=== PATIENT | female | born 1950 ===

== ENCOUNTER → 2023-11-24 09:31 | Outpatient (REF) | payer MEDICARE, OTHER, SELFPAY ==
[2023-11-24 10:27] LABS: Hematocrit 39.3 % (37.0-47.0); Hemoglobin 13.1 g/dL (12.0-16.0); Mean Corp Hgb Conc. 33.3 g/dL (33.0-37.0); Mean Corpuscular Hgb 29.8 pg (27.0-31.0); Mean Corpuscular Volume 89.3 fL (81.0-99.0); Mean Platelet Volume 9.6 fL (7.4-10.4); Platelet Count 244 10^3/uL (130-400); Red Cell Dist. Width 12.7 % (11.5-14.5)
[2023-11-24 10:56] LABS: Blood Urea Nitrogen 21 mg/dl (7-17); Calcium 9.7 mg/dl (8.4-10.2); Carbon Dioxide 26 mmol/L (22-30); Chloride 103 mmol/L (98-107); Glucose 100 mg/dl (70-99); Potassium 4.1 mmol/L (3.5-5.1); Sodium 137 mmol/L (135-145); eGFR > 60.00
== END ==
LOC: SDSPAT 09:31
PROVIDERS: ATTENDING PHYSICIAN Surgery; FAMILY PHYSICIAN Family Medicine
DX: Z01.818 Encounter for other preprocedural examination (principal)
CPT/HCPCS: 36415; 80048; 85027; 93005

== ENCOUNTER 2023-12-08 06:13 | Day surgery (SDC) | payer MEDICARE, OTHER, SELFPAY ==
[2023-11-24 09:55] VITALS: BMI 32.7
--- NOTE | 2023-11-25 12:36 | PTCARENOTE ---
Abn ECG, Dr. Bailey notified, no requests received.
[2023-12-08] VITALS (10 sets, daily range): BP systolic 124–154; BP diastolic 62–72; BMI 32.7
[2023-12-08] MEDS: TYLENOL 1000 MG PO (06:35)
[2023-12-08] MEDS: NORMOSOL-R 1000 IV (06:38)
--- NOTE | 2023-12-08 06:57 | HP.FOC2 ---
Focused History & Physical
Chief Complaint
HPI:
Chief Complaint: Right inguinal swelling
HPI / Indication for Planned Procedure: Patient is a 73-year-old female recently seen in outpatient surgical evaluation after CT imaging identified a right femoral hernia. She has had a history of a visible bulge and swelling as well as sensation
of gas moving within the right inguinal/femoral hernia space. Occasional discomfort associated with it. Physical examination confirmed the presence of a reducible right femoral/inguinal hernia
Relevant Past Medical History: Other (Osteoporosis, hypercholesterolemia, GERD)
Relevant Social History: Negative
Relevant Family History: Negative
Relevant Past Surgical History: Positive for (Partial hysterectomy)
Review of Systems
Review of Pertinent Systems: All Systems Negative
Medication
See Medication form for detailed medications: Yes
Medication List (including Herbals & OTC):
Lactobacillus 25 billion cell-Bifido 25 billion [id number] capsule 1 cap PO DAILY 12/01/23
alendronate 70 mg tablet 70 mg PO QWEEK 12/01/23
calcium carbonate (Calcium 600) 600 mg PO BID 12/01/23
cholecalciferol (vitamin D3) 50 mcg (2,000 unit) capsule (Vitamin D3) 50 mcg PO NOON 12/01/23
coenzyme Q10 100 mg capsule (CoQ-10) 200 mg PO DAILY 12/01/23
omeprazole 20 mg tablet,delayed release 20 mg PO DAILY 12/01/23
pravastatin 10 mg tablet 10 mg PO HS 12/01/23
Medications Reviewed: Yes
Allergies and Reactions
Patient has Allergies: Yes
Noted Allergies and Reactions:
Allergy/AdvReac Type Severity Reaction Status Date / Time
latex Allergy Rash Verified 12/08/23 06:23
sulfamethoxazole Allergy N/V/D Verified 12/08/23 06:23
[From Bactrim]
trimethoprim [From Bactrim] Allergy N/V/D Verified 12/08/23 06:23
Pertinent Physical Exam
All Other Systems: Negative
Head/Neck: Normal
Lungs: Normal
Heart: Normal
Abdomen: Other (Reducible right inguinal/femoral hernia)
Extremities: Normal
Neurological: Normal
Diagnosis / Assessment
Patient is a 73-year-old female presenting for scheduled operative correction symptomatic right femoral hernia
Plan / Procedure
Robotic assisted laparoscopic repair of right femoral hernia with mesh
Anesthesia/Sedation to be done by Anesthesia Provider: Yes
--- NOTE | 2023-12-08 06:58 | W.SUR.PREOP ---
Pre-Operative Surgical Note
-
I have examined this patient prior to the performance of the scheduled procedure.
The patient's condition is unchanged from the time of the current History and
Physical and the patient is able to undergo the scheduled procedure.
--- NOTE | 2023-12-08 09:23 | W.IMMPOSTOP ---
Addendum entered and electronically signed by Anthony Tam MD 12/08/23 09:36:
#[id number]
Original Note:
Surgical Immed Post Op Note
-
Primary Surgeon: Yonatan
Assisting Surgeon: Kathy Lovell - CHARU
Pre-op Diagnosis: Right femoral/inguinal hernia
Post-op Diagnosis: Right inguinal hernia
Procedure Performed: Robotic assisted laparoscopic repair right inguinal hernia with mesh; 3D max large mid weight
Anesthesia Type: GETA +0.5% Marcaine
Specimen / Cultures: None
Estimated Blood Loss: 10 mL
Complications: None immediate
Operative Findings: Right indirect inguinal hernia with sizable hernia sac, herniated preperitoneal fat. Indirect and femoral spaces normal. Entire hernia sac and contents reduced and excessive hernia sac excised. 3D max large mid weight mesh
repair.
The assistance of Kathy Lovell PA-C was required due to the complexity of the procedure. During the procedure Kathy Lovell PA-C assisted with port placement, robotic instrumentation and suture/surgical material exchanges, and closure of the surgical
incision sites. I was present for the entirety of the operative procedure.
--- NOTE | 2023-12-08 10:12 | PTCARENOTE ---
0926 Received patient from OR C/O need to void, given bedpan and patient unable to void. Patient feels very uncomfortable, bladder scan performed indicated 562 ML. Attempted to straight cath X2 with staff assist, unsuccessful as patient anatomy made
visualization of urethra difficult. While attempting to straight cath patient was incont of small amount of urine, while changing pad patient became incont of moderate amount of urine. Patient reports feeling better requesting bathroom. Report
given to SDS RN and patient now C/O increase feeling to urinate again. SDS RN will take patient to bathroom. Stable for transfer to [facility].
[2023-12-08] MEDS: ROXICODONE 5 MG PO (10:38)
== END 2023-12-08 11:00 | disposition home or self-care (01) ==
LOC: SDS 06:13
PROVIDERS: ATTENDING PHYSICIAN Surgery
DX: K40.90 Unilateral inguinal hernia, without obstruction or gangrene, not specified as recurrent (principal)
CPT/HCPCS: 49650; C1781

== ENCOUNTER 2025-04-14 05:53 | Day surgery (SDC) | payer MEDICARE, OTHER, SELFPAY ==
--- NOTE | 2025-03-28 10:03 | CM ---
Demographics: confirmed
Living situation: confirmed
Support Person Post Operatively: spouse
History of
VN: no
SNF: no
Outpatient : [facility]
Has patient purchased required equipment: yes
PCP: active
Pharmacy: [facility]
Post Operative Discharge Plan: [facility], and then transition to Outpatient [facility]
--- NOTE | 2025-03-31 10:37 | VNURNOTE ---
Patient is scheduled for an elective R TKA on 04/14 - she is a same day patient with Dr Coles. Spoke with patient prior to surgery. Introduced role of [facility] Liaison. Patient reports that she lives with her spouse.
She will be getting 2 rolling walkers next week.
PCP is Dr Jeancarlos Dee
Discussed [facility] joint protocol and post surgical plans.
Reviewed that she will have VN services initially and will then start outpatient PT.
Patient selects [facility] for her home care needs and will go to [facility] outpatient [facility]. Scheduled for 04/18 .
Patient is in agreement with plan and states that her spouse and daugther will be home with her. Advised to bring RW with her day of surgery. [facility] contact number provided. Referral placed in [facility].
Plan: [facility] per [facility] joint protocol 04/14 then outpt PT on 04/18.
[2025-04-01 11:42] LABS: Hematocrit 39.5 % (37.0-47.0); Hemoglobin 12.9 g/dL (12.0-16.0); Mean Corp Hgb Conc. 32.7 g/dL (33.0-37.0); Mean Corpuscular Volume 88.0 fL (81.0-99.0); Platelet Count 232 10^3/uL (130-400); Red Cell Dist. Width 13.1 % (11.5-14.5)
[2025-04-01 12:06] LABS: ALT (SGPT) 18 U/L (0-35); AST (SGOT) 22 U/L (14-36); Albumin 4.3 g/dl (3.5-5.0); Alkaline Phosphatase 69 U/L (38-126); Blood Urea Nitrogen 18 mg/dl (7-17); Calcium 9.5 mg/dl (8.4-10.2); Carbon Dioxide 28 mmol/L (22-30); Chloride 105 mmol/L (98-107); Glucose 112 mg/dl (70-99); Potassium 4.2 mmol/L (3.5-5.1); Sodium 136 mmol/L (135-145); Total Protein 7.2 g/dl (6.3-8.2); eGFR > 60.00
[2025-04-01 12:29] LABS: Glycohemoglobin (HgbA1c) 5.7 % (4.0-5.9)
[2025-04-01 14:09] VITALS: BMI 34.6
[2025-04-01 18:36] VITALS: BMI 34.6
[2025-04-14] VITALS (15 sets, daily range): BP systolic 103–139; BP diastolic 44–70
[2025-04-14] MEDS: TYLENOL 650 MG PO ×2 (06:23→13:26)
[2025-04-14] MEDS: MOBIC 15 MG PO (06:23)
[2025-04-14] MEDS: NORMOSOL-R/PLASMALYTE-A 1000 IV (06:31)
[2025-04-14] MEDS: DILAUDID 0.25 MG IV (10:02)
[2025-04-14] MEDS: COMPAZINE 10 MG IV (11:05)
[2025-04-14] MEDS: ANCEF 5 IV (11:32)
[2025-04-14] MEDS: ROXICODONE 5 MG PO (12:02)
[2025-04-14] MEDS: TORADOL 15 MG IV (13:26)
--- NOTE | 2025-04-14 18:59 | OR.RPT ---
Operative Report
Operative Report
Orthopaedic Surgery Operative Note
DATE OF OPERATION: 04-14-2025
PREOPERATIVE DIAGNOSES: Osteoarthritis, right knee.
POSTOPERATIVE DIAGNOSES: Osteoarthritis, right knee.
OPERATION PERFORMED:
1) Right total knee arthroplasty (CPT 37102)
2) Intraosseous administration of analgesic (CPT 90047)
SURGEON: Aldo Coles MD
ASSISTANTS: Neto Platt PA-C who helped with patient and limb positioning and retraction
ANESTHESIA: Spinal by anesthesia plus intraoperative infusion of morphine into the tibial metaphysis by Dr. Coles
COMPLICATIONS: None.
ESTIMATED BLOOD LOSS: 20mL
DRAINS: None
TOURNIQUET TIME: 48 minutes.
IMPLANTS:
- Alfonso Persona CR Femur, size 9
- Alfonso Persona tibia base plate, size E
- Alfonso Persona ultracongruent articular surface, 10 mm
- DJO [place] bone cement
INDICATIONS: The patient presented to my office with debilitating right knee pain due to osteoarthritis. We reviewed the natural history of this problem, as well as the risks, benefits, and alternatives of various treatment options. The patient
exhausted all nonoperative treatment options and wished to proceed with knee replacement surgery. The patient understood the risks which included, but were not limited to, bleeding, infection, failure to relieve pain, more pain than preop, damage to
blood vessels and nerves, need for reoperation, mechanical failure of the implants, wound healing problems, stiffness, instability, blood clot, pulmonary embolism, myocardial infarction, pneumonia, arrhythmia, CVA, and . The patient accepted
these risks and wished to proceed. All questions were answered, and informed consent was obtained.
PROCEDURE IN DETAIL: The patient was identified in the preoperative holding area. The right knee was identified as the operative site. The patient was taken in the operating room and placed in a supine position on the operating table. Spinal
anesthesia was performed. IV antibiotics and tranexamic acid were administered. An SCD was placed on the left lower extremity. A well-padded tourniquet was placed on the proximal thigh. All bony prominences were well padded. The right lower
extremity was prepped and draped in the usual sterile fashion.
We performed a surgical time-out. An interarticular block was performed with local anesthetic with epinephrine. The limb was exsanguinated with an Esmarch bandage, then the tourniquet was inflated to 250 mmHg. I performed interosseous administration
of morphine-saline solution via a Jamshidi style intraosseous needle into the proximal medial tibial metaphysis as described by Arnol Santiago MD. This was performed to aid in pain control. A midline skin incision was made followed by a medial
parapatellar arthrotomy. A subperiosteal peel was performed on the medial tibia. I excised part of the infrapatellar fat pad to improve our visualization as well as tissue over anterior femur. The patella was everted and the knee was flexed. I
excised the remnants of the anterior and posterior cruciate ligaments as well as tibial and femoral osteophytes with rongeurs.
The knee was flexed, and the extramedullary tibial cutting guide was aligned. [facility] was aligned at neutral, rotation was centered on the tibial tubercle, and coronal alignment was aligned with the mechanical axis of the tibia and center of the ankle
joint. The cut height was 10mm off the lateral tibia joint surface. The guide was secured into place. The MCL and LCL were protected. The tibia surface was cut. The cut surface was inspected after removal to ensure appropriate height and slope based
on the preoperative plan. The cut was checked with a drop wolf. It was centered nicely at the ankle.
A drill was used to open the femoral canal. The intramedullary distal femoral cutting guide was inserted into the femur. This was set at 5 degrees +0. This was secured into place with three pins. The cut level was checked with an yunior wing. The
distal femur was cut through the cutting guide. The IM guide was reinserted to double check that the level of resection was flush and in appropriate alignment.
Cheng�s line and the transepicondylar axis were marked on the femur. The femoral sizing guide was applied to the anterior femur. Pins were inserted, and the 4-in-1 cutting guide was applied and secured into place. The rotation was compared to
Tehama�s line, the transepicondylar axis, and the neutral tibia cut and was found to be appropriate. The width was checked and found to be appropriate and lateralized on the femur. The anterior, posterior, and chamfur cuts were made. A lamina
system engineer was used to open the flexion gap, and posterior osteophytes were removed with a curved osteotome. The remnant medial and lateral meniscus were also removed. I prophylactically cauterized the lateral geniculate arteries. A 10mm spacer block
was applied to the flexion gap and was noted to be balanced medially and laterally. The knee was extended, and the block showed symmetric to extension and flexion gaps.
The tibia was exposed and sized. Rotation was set in line with the tibial tubercle and congruent with the femur. The trial was secured into place with two pins. The trial femur was impacted into place, and a trial articular surface was placed. The
knee was taken through range of motion and noted to be stable throughout the arc of motion without gaping or excess tension. The patella tracked centrally throughout the arc of motion without need for further releases. No full thickness cartilage
defects.
The trials were removed. The tibia keel was prepared with the punch and the drill. The bone surfaces were irrigated with sterile saline and dried. The cement was mixed in a vacuum mixer. Cement gun was used to apply cement to the tibial surface and
the undersurface of the tibial implant. Cement was pressurized into the tibial canal and tibia surface. The tibial component was impacted into place. Excess cement was removed. Cement was applied to the femoral surface and the femoral component. The
femoral component was impacted into place, and excess cement removed. A trial articular surface was inserted, and the knee was extended while the cement polymerized. The tourniquet was let down, and meticulous hemostasis was achieved. Dilute
betadine was poured into the wound and allowed to soak for 3 minutes. The knee was irrigated with copious normal saline.
Once the cement was polymerized, the trial articular surface was removed. Any excess cement was removed. The knee was trialed, and the final articular surface was selected and inserted into the tibial locking mechanism. The knee was reduced. A fresh
drape was applied to the surgical field.
The arthrotomy was closed with 0-PDS. Once closed, an interarticular block was performed with local anesthetic with epi. The deep dermal layer was closed with 2-0 monfiliament, and the subcuticular skin was closed with 3-0 monofilament. A Dermabond
Prineo dressing was applied to the skin in full flexion. Once this was completely dry, a sterile waterproof dressing was applied.
The anesthesia team performed an adductor canal block in the OR. The patient awoke from anesthesia without any difficulties. The sponge and instrument counts were correct x2 at the end of the case.
Moe Coles MD
== END 2025-04-14 14:25 | disposition home health service (06) ==
LOC: SDS 05:53
PROVIDERS: ATTENDING PHYSICIAN Orthopaedic Surgery; FAMILY PHYSICIAN Family Medicine
DX: M17.11 Unilateral primary osteoarthritis, right knee (principal)
CPT/HCPCS: 27447; 36415; 73560; 80053; 83036; 85027; 87070; 93005; 97162; C1713; C1776